=== PATIENT | male | born 1990 | race Caucasian/White ===

== ENCOUNTER 2018-12-28 15:28 | Emergency (ER) | payer BC, OTHER ==
[2018-12-28] MEDS ORDERED: Ketorolac Tromethamine 30 MG/ML VIAL ONE (15:43)
[2018-12-28] MEDS ORDERED: Cyclobenzaprine 10 MG TAB ONE (15:43)
== END 2018-12-28 16:13 | disposition home or self-care (01) ==
LOC: MADERS 15:28
DX: S29.012A Strain of muscle and tendon of back wall of thorax, initial encounter (principal); S00.83XA Contusion of other part of head, initial encounter; V43.62XA Car passenger injured in collision with other type car in traffic accident, initial encounter
CPT/HCPCS: 96374; G0390; J1885